=== PATIENT | female | born 1975 | race Caucasian/White ===

== ENCOUNTER 2022-03-26 18:19 | Emergency (ER) | payer OTHER, SELFPAY ==
[2022-03-26 18:25] VITALS: BP 133/72; PULSE 100; RESP 16; TEMP 36.4; O2SAT 100
--- NOTE | 2022-03-26 18:29 | ED.NECK ---
HPI - Neck Pain/Injury General Chief Complaint: Neck Pain/Injury Stated Complaint: neck pain Time Seen by Provider: 03/26/22 18:27 History of Present Illness HPI Narrative: 46-year-old female presents the emergency room complaints of a right-sided neck pain. Painful and radiates from her ear and into her throat. Patient also admits to sinus congestion and postnasal drip. Endorses a popping sound in her ears, no tinnitus. Patient denies fever. Patient denies sore throat. Related Data Allergies Allergy/AdvReac Type Severity Reaction Status Date / Time No Known Allergies Allergy Verified 03/26/22 18:28 Review of Systems Review of Systems: CONSTITUTIONAL: Denies fever, chills, or sweats. EYES: Denies visual changes, redness, or discharge. ENT: Reports sinus congestion and postnasal drip and right otalgia CARDIOVASCULAR: Denies chest pain, palpitations, or edema. RESPIRATORY: Denies cough or dyspnea. GASTROINTESTINAL: Denies abdominal pain, nausea, vomiting, or diarrhea. GENITOURINARY: Denies dysuria or hematuria. SKIN: Denies rash or itching. MUSCULOSKELETAL: Denies back pain, joint pain, or myalgia. NEUROLOGIC: Denies headache, numbness, dizziness, or weakness. PSYCHIATRIC: Denies anxiety or depression. Exam Narrative: GENERAL: Well-appearing, well-nourished, no physical limitations, and in no acute distress. HEAD: Normocephalic, atraumatic. EYES: Conjunctivae normal, PERRLA and EOMI. ENT: External nose normal, Nares clear, no rhinorrhea or epistaxis. Mucous membranes moist. Oropharynx without tonsillar hypertrophy exudate or other lesions. External ears normal, bilateral TMs normal bilaterally with clear effusion. NECK: Supple. No meningeal signs. No adenopathy or masses. No carotid bruits or JVD. Tenderness radiates from the right tragus around the corner of the jaw to the throat CHEST: Clear to auscultation. No respiratory distress. No wheezes rales or rhonchi. No tenderness. HEART: Regular rate and rhythm. No murmur heard. Normal peripheral pulses. EXTREMITIES: Normal range of motion. No edema. No clubbing or cyanosis SKIN: Warm, dry, no rash. No noted wounds NEURO: No focal deficits. Alert and oriented x3. MAEW. CN's II-XI intact bilaterally, normal gait PSYCH: Cooperative. Normal mood and affect. Course Vital Signs Vital signs: Vital Signs Temperature 36.4 C 03/26/22 18:25 Pulse Rate 100 03/26/22 18:25 Respiratory Rate 16 03/26/22 18:25 Blood Pressure 133/72 03/26/22 18:25 Pulse Oximetry 100 03/26/22 18:25 Oxygen Delivery Room Air 03/26/22 18:25 Temperature 36.4 C 03/26/22 18:25 Pulse Rate 100 03/26/22 18:25 Respiratory Rate 16 03/26/22 18:25 Blood Pressure 133/72 03/26/22 18:25 Pulse Oximetry 100 03/26/22 18:25 Oxygen Delivery Room Air 03/26/22 18:25 Discharge Plan Discharge Clinical Impression: Disorder of eustachian tube Patient Disposition: Home, Self-Care Condition: Stable Instructions: Antibiotic Form, Earache (ED) Prescriptions: New prednisone 20 mg tablet 40 mg PO DAILY 5 Days Qty: 10 0RF pseudoephedrine HCl 30 mg tablet 30 mg PO Q4-6H PRN (Reason: nasal congestion) Qty: 30 0RF Rx Instructions: DNExceed 4 doses/24h Follow-up/Referrals: PHYSICIAN,[facility] [employer] [Primary Care Provider] - Time of Disposition: 18:29
== END 2022-03-26 18:46 | disposition home or self-care (01) ==
LOC: ANHED 18:39
PROVIDERS: Emergency Provider Nurse Practitioner Family
DX: H69.90 Unspecified Eustachian tube disorder, unspecified ear (principal)
CPT/HCPCS: 96372; 99283; J1100